=== PATIENT | male | born 1945 | race Caucasian/White ===

== ENCOUNTER 2017-05-29 07:46 | Day surgery (SDC) | payer OTHER, BC ==
[2017-05-24 11:48] VITALS: BMI 30.5
[2017-05-29] MEDS ORDERED: PROPOFOL 20 ML ONE ×2 (07:56)
[2017-05-29] MEDS ORDERED: LIDOCAINE HCL/PF 2% SDV 5ML VIAL ONE (07:57)
[2017-05-29 08:09] VITALS: TEMP 97.7
[2017-05-29 10:37] VITALS: BP 137/69; PULSE 65
--- NOTE | 2017-05-31 10:58 | PATH ---
Surgical Pathology Report Patient Name: MARK SNYDER [facility]. Rec. #: [id number] /Age/Gender: 1945 (Age: 71) / M Account: [id number] Location: [facility]-ENDOSCOPY Taken: 05/29/2017 Received: 05/29/2017 Reported: 05/31/2017 Physicians: Uvaldo Gore M.D. Specimen(s) Received BX HEPATIC FLEXURE Clinical History Rule out colon cancer Postoperative diagnosis: Polyp Final Diagnosis COLON, HEPATIC FLEXURE, POLYPECTOMY: SUBMUCOSAL LIPOMA AND HYPERPLASTIC POLYP. Electronically Signed Bin Hannon M.D. Gross Description Received in formalin labeled "hepatic flexure," is a 0.8 x 0.7 x 0.6 cm nichole-brown, polypoid portion of soft tissue. The base is inked blue and the specimen is bisected. The specimen is entirely submitted in one cassette. /05/30/2017 saudi05/30/2017
== END 2017-05-29 10:40 | disposition home or self-care (01) ==
LOC: FASU-ENDO 07:46
PROVIDERS: ATTEND Internal Medicine Gastroenterology
PROC: 0DBL8ZX Excision of Transverse Colon, Via Natural or Artificial Opening Endoscopic, Diagnostic (ICD-10-PCS; principal; 2017-05-29 09:36)
DX: Z12.11 Encounter for screening for malignant neoplasm of colon (principal); K57.30 Diverticulosis of large intestine without perforation or abscess without bleeding; D17.79 Benign lipomatous neoplasm of other sites; K63.5 Polyp of colon
CPT/HCPCS: 88305-TC